=== PATIENT | male | born 1970 | race African-American/Black ===

== ENCOUNTER 2023-05-06 09:03 | Emergency (ER) | payer MEDICAID, OTHER ==
[~2023-05-06] VITALS: Ht 177.8 cm; Wt 102.3 kg
[2023-05-06 09:37] VITALS: BP 144/84; PULSE 85; RESP 18; TEMP 98.2; O2SAT 97
[2023-05-06] MEDS ORDERED: KETOROLAC TROMETH 60MG/2ML VIAL IM ONE (09:45)
[2023-05-06] MEDS ORDERED: methylPREDNISolone SOD SUCC 40 MG/ML VL IM ONE (09:45)
[2023-05-06] MEDS ORDERED: DexAMETHasone SOD PHOS 10MG/1ML VIAL INJ IM ONE (10:00)
[2023-05-06] MEDS ORDERED: AZIT500T66 PO ×2 (10:18)
[2023-05-06] MEDS ORDERED: BENZ200C64 PO ×2 (10:18)
[2023-05-06] MEDS ORDERED: INDO50CA82 PO (10:24)
[2023-05-06] MEDS ORDERED: COLC1CAP PO (10:24)
== END 2023-05-06 10:30 | disposition home or self-care (01) ==
LOC: ER 09:03
DX: M10.9 Gout, unspecified (principal)
CPT/HCPCS: 96372; 99284; J1100; J1885

== ENCOUNTER 2023-07-21 15:28 | Emergency (ER) | payer MEDICAID ==
[~2023-07-21] VITALS: Ht 177.8 cm; Wt 100.0 kg
[~2023-07-21 15:28] MED LIST: COLC1CAP PO; INDO50CA82 PO
[2023-07-21 16:25] LABS: Urine Bacteria FEW /hpf (None Seen); Urine Blood Negative /uL (Negative); Urine Clarity Clear (Clear); Urine Color Colorless (Yellow); Urine Protein, UAD Negative (Negative); Urine Specific Gravity 1.014 (1.001-1.035); Urine Urobilinogen Normal (Negative); Urine WBC <1 /hpf (0 - 3); Urine pH 5.5 (5.0-8.0)
[2023-07-21] MEDS ORDERED: IBUPROFEN 800 MG TAB PO ONE (17:00)
[2023-07-21 17:08] VITALS: BP 137/90; PULSE 78; RESP 18; TEMP 97.7; O2SAT 97
[2023-07-21] MEDS ORDERED: IBUP-1455 PO (17:54)
== END 2023-07-21 18:07 | disposition home or self-care (01) ==
LOC: ER 15:28
DX: R10.9 Unspecified abdominal pain (principal)
CPT/HCPCS: 74176; 81001

== ENCOUNTER 2023-10-21 17:53 | Emergency (ER) | payer MEDICAID ==
[~2023-10-21] VITALS: Ht 177.8 cm; Wt 107.2 kg
[~2023-10-21 17:53] MED LIST changes: +IBUP-1455 PO
[2023-10-21 18:54] VITALS: BP 126/81; PULSE 93; RESP 16; TEMP 97.8; O2SAT 96
[2023-10-21] MEDS ORDERED: DexAMETHasone SOD PHOS 10MG/1ML VIAL INJ IM ONE (19:15)
[2023-10-21] MEDS ORDERED: HYDROcodone-ACET 5/325MG TAB PO ONE (19:15)
[2023-10-21] MEDS ORDERED: KETOROLAC TROMETH 60MG/2ML VIAL IM ONE (19:15)
[2023-10-21] MEDS ORDERED: HYDR-4902 PO (19:35)
[2023-10-21] MEDS ORDERED: INDO50CA82 PO (19:35)
== END 2023-10-21 19:55 | disposition home or self-care (01) ==
LOC: ER 17:53
DX: M10.9 Gout, unspecified (principal); E11.9 Type 2 diabetes mellitus without complications; Z76.0 Encounter for issue of repeat prescription; Z79.1 Long term (current) use of non-steroidal anti-inflammatories (NSAID); Z79.899 Other long term (current) drug therapy
CPT/HCPCS: 96372; 99284; J1100; J1885

== ENCOUNTER 2025-01-07 19:43 | Emergency (ER) | payer SELFPAY ==
[~2025-01-07] VITALS: Ht 177.8 cm; Wt 99.3 kg
[~2025-01-07 19:43] MED LIST changes: +HYDR-4902 PO
[2025-01-07 20:00] VITALS: BP 118/73; PULSE 83; RESP 12; TEMP 99.3; O2SAT 97
--- NOTE | 2025-01-07 22:19 | DVH ---
CLINICAL INDICATION: pain and swelling TECHNIQUE: XY R ANKLE 3 VIEW Comparison: None FINDINGS/IMPRESSION: : Cortical irregularity of the distal fibula suggests nondisplaced fracture. No other fractures are identified. The ankle mortise is preserved. Moderate bi malleolar soft tissue swelling. Soft tissues are otherwise unremarkable.
--- NOTE | 2025-01-07 22:48 | ED.PDOC ---
Back pain HPI HPI Comments PATIENT C/O RIGHT ANKLE SWELLING AND PAIN SINCE WEDNESDAY. PATIENT STATES IT FEELS LIKE A GOUT FLARE UP, RAN OUT OF INDOMETHACIN Chief Complaint: Lower Extremity Time Seen by MD: 19:50 Primary Care Provider: EDWIN Reviewed Notes: Nurses Notes, Medications, Allergies Allergies: Coded Allergies: NO KNOWN ALLERGIES (Unverified , 05/06/23) Home Meds Active Scripts Indomethacin (Indomethacin) 50 Mg Cap, 1 CAP PO TID PRN for 10 Days, #30 CAP Prov:MURRAY,MARI SORTER OPERATOR 01/07/25 Indomethacin (Indomethacin) 50 Mg Cap, 1 CAP PO Q6HPRN PRN, #12 CAP 1 Refill as neeed for gout pain Prov:MATTHIAS GELLER Q CENTRAL OFFICE INSTALLER 10/21/23 Hydrocodone-Acetaminophen (Hydrocodone Bitartrate/AC 5-325 mg) 1 Tab Tab, 1 TAB PO Q6HPRN PRN, #10 TAB as needed for severe pain Prov:MATTHIAS GELLER Q CENTRAL OFFICE INSTALLER 10/21/23 Ibuprofen Micronized (Ibuprofen) 800 Mg Tab, 800 MG PO Q8HP PRN, #30 TAB Prov:TI FRANZ PAC 07/21/23 Colchicine (Colchicine) 0.6 Mg Cap, 0.6 MG PO BID, #30 CAP Prov:YVETTE HOLDEN 05/06/23 Indomethacin (Indomethacin) 50 Mg Cap, 1 CAP PO TID, #30 CAP Prov:YVETTE HOLDEN 05/06/23 Information Source: Patient Mode of Arrival: Ambulatory Past Medical History PAST MEDICAL HISTORY: DM, Gout Surgical History: Denies all surgeries Family History Family History: Reviewed,noncontributory to illness Social History Smoker: Non-Smoker Alcohol: Denies ETOH Use Drugs: Denies Drug Use Lives In: Home Constitutional: denies: chills, diaphoresis, fatigue, fever, malaise, sweats, weakness, others EENTM: denies: blurred vision, double vision, ear bleeding, ear discharge, ear drainage, ear pain, ear ringing, eye pain, eye redness, hearing loss, mouth pain, mouth swelling, nasal discharge, nose bleeding, nose congestion, nose pain, photophobia, tearing, throat pain, throat swelling, voice changes, others Respiratory: denies: cough, hemoptysis, orthopnea, SOB at rest, shortness of breath, SOB with excertion, stridor, wheezing, others Cardiovascular: denies: chest pain, dizzy spells, diaphoresis, Dyspnea on exertion, edema, irregular heart beat, left arm pain, lightheadedness, palpitations, PND, syncope, others Gastrointestinal: denies: abdomen distended, abdominal pain, blood streaked bowels, constipated, diarrhea, dysphagia, difficulty swallowing, hematemesis, melena, nausea, poor appetite, poor fluid intake, rectal bleeding, rectal pain, vomiting, others Genitourinary: denies: burning, dysuria, flank pain, frequency, hematuria, incontinence, penile discharge, penile sore, pain, testicle pain, testicle swelling, urgency, others Neurological: denies: dizziness, fainting, headache, left sided numbness, left sided weakness, numbness, paresthesia, pre-existing deficit, right sided numbness, right sided weakness, seizure, speech problems, tingling, tremors, weakness, others Musculoskeletal: reports: others (RIGHT ANKLE PAIN AND SWELLING); denies: back pain, gout, joint pain, joint swelling, muscle pain, muscle stiffness, neck pain Integumetry: denies: bruises, change in color, change in hair/nails, dryness, laceration, lesions, lumps, rash, wounds, others Allergic/Immunocompromised: denies: Difficulty Healing, Frequent Infections, Hives, Itching, others Hematologic/Lymphatic: denies: anemia, blood clots, easy bleeding, easy bruising, swollen glands, others Endocrine: denies: excessive hunger, excessive sweating, excessive thirst, excessive urination, flushing, intolerance to cold, intolerance to heat, unexplained weight gain, unexplained weight loss, others Psychiatric: denies: anxiety, bipolar disorder, depression, hopeless, panic disorder, schizophrenia, sleepless, suicidal, others Physical Exam General Appearance: No Apparent Distress, Normal HEENT: Pharynx Normal Neck: Full Range of Motion, Non-Tender Respiratory: Lungs Clear, No Respiratory Distress, Normal Breath Sounds Cardiovascular: No Murmur, Normal Peripheral Pulses, Regular Rate/Rhythm Breast Exam: Deferred Gastrointestinal: Non Tender, Soft Genitalia: Deferred Pelvic: Deferred Rectal: Deferred Extremities: Normal capillary refill, Normal inspection, Normal range of motion, Non-tender, No pedal edema Musculoskeletal : Location: Right (MODERATE ANKLE EDEMA STRENGTH SENSORY MOTION INTACT NO NOTED CREPITUS OR BONY PROMINENCE POSITIVE PEDAL PULSE) Apperance: Normal Neurologic: Alert, train gate attendant II-XII nml as Tested, No Motor Deficits, Normal Affect, Normal Mood, No Sensory Deficits Cerebellar Function: Normal Reflexes: Normal Skin: Dry, Normal Color, Warm Lymphatic: No Adenopathy Was a procedure done? Was a procedure done?: No Back Pain Differential Dx Differential Diagnosis: Fracture, Musculoskeletal Pain X-Ray, Labs, Meds, VS Vital Signs Date Time Temp Pulse Resp B/P (MAP) Pulse Ox O2 Delivery O2 Flow Rate FiO2 01/07/25 20:00 99.3 83 12 118/73 (88) 97 99.3 01/07/25 20:00 Room Air 01/07/25 20:00 99.3 83 12 118/73 (88) 97 99.3 Current Medications Medications (Trade) Dose Ordered Sig/Matt Route Start Time Stop Time Status Last Admin Ibuprofen (Motrin Tablet) 600 mg ONCE ONCE PO 01/07/25 23:00 01/07/25 23:01 DC 01/07/25 23:08 X-Ray, Labs, Meds, VS Comment RIGHT ANKLE X-RAY SHOWS NONDISPLACED DISTAL FIBULA FRACTURE. DISLOCATIONS OR OSSEOUS LESIONS. PATIENT GIVEN IBUPROFEN, REFUSED NORCO STATES HE WAS DRIVING HE NOTES IMPROVEMENT IN PAIN AND FUNCTION REQUESTING DISCHARGE AT THIS TIME. STIRRUP POSTERIOR SPLINT PLACED CRUTCHES PROVIDED PATIENT TOLERATED WELL POSITIVE CSM BEFORE AND AFTER. SCRIPT INDOMETHACIN ADVISED TO TAKE MEDICATION PRESCRIBED SIDE EFFECTS DISCUSSED. ADVISED TO FOLLOW UP WITH HIS PCP IN 2 DAYS FOR CONTINUED MANAGEMENT OF HIS GOUT AND RE-EVALUATION OF HIS ANKLE CONSIDER ORTHO REFERRAL SYMPTOMS PERSIST. ADVISED ON RICE. ADVISED ON ER RETURN PRECAUTIONS PATIENT INDICATED UNDERSTANDING AGREES WITH DISCHARGE PLAN OF CARE. Time of 1ST Reevaluation: 23:38 Reevaluation 1ST: Improved Patient Education/Counseling: Diagnosis, Treatment, Prognosis, Need For Follow Up Family Education/Counseling: No Family Present Departure 1 Departure Time of Disposition: 23:06 Impression: Primary Impression: Fracture of distal fibula Qualified Codes: S82.831A - Other fracture of upper and lower end of right fibula, initial encounter for closed fracture Additional Impression: Gout flare Qualified Codes: M10.9 - Gout, unspecified Disposition: HOME / SELF CARE / HOMELESS Condition: Stable e-Prescriptions Indomethacin (Indomethacin) 50 Mg Cap 1 CAP PO TID PRN for 10 Days, #30 CAP Prov: MARI GAO 01/07/25 Discharged With: Self Critical Care Note Critical Care Time?: No Stability Stability form required: MARI Odonnell Jan 07, 2025 22:48
[2025-01-07] MEDS ORDERED: INDO50CA82 PO (23:07)
[2025-01-07] MEDS: HYDROcodone-ACET 5/325MG TAB PO ONE (23:07)
[2025-01-07] MEDS: IBUPROFEN 600 MG TAB PO ONE (23:08)
[2025-01-07] MEDS: DexAMETHasone SOD PHOS 10MG/1ML VIAL INJ IM ONE (23:57)
== END 2025-01-08 00:03 | disposition home or self-care (01) ==
LOC: ER 19:43
DX: S82.831A Other fracture of upper and lower end of right fibula, initial encounter for closed fracture (principal); E11.9 Type 2 diabetes mellitus without complications; M10.9 Gout, unspecified; Z79.899 Other long term (current) drug therapy; X58.XXXA Exposure to other specified factors, initial encounter; Y93.89 Activity, other specified; Y92.89 Other specified places as the place of occurrence of the external cause; Y99.8 Other external cause status
CPT/HCPCS: 29515; 73610; 96372; 99283; J1100

== ENCOUNTER 2025-01-15 13:32 | Inpatient (IN) | payer MEDICAID, SELFPAY ==
[~2025-01-15] VITALS: Ht 177.8 cm; Wt 104.6 kg
[2025-01-15] MEDS: ACETAMINOPHEN 325 MG TAB PO ONE (13:56)
--- NOTE | 2025-01-15 14:27 | ED.PDOC ---
History of Present Illness HPI Comments 54-year-old male presents with a chief complaint of generalized weakness and chills since yesterday. Patient also reports headache and decreased urine output. Patient is currently febrile at 100.6F Chief Complaint: General Weakness Time Seen by MD: 14:05 Primary Care Provider: CHERELLE Eugene Notes: Medications, Allergies Allergies: Coded Allergies: NO KNOWN ALLERGIES (Unverified , 05/06/23) Home Meds Active Scripts Indomethacin (Indomethacin) 50 Mg Cap, 1 CAP PO TID PRN for 10 Days, #30 CAP Prov:MARI GAO RESEARCH PROFESSIONAL 01/07/25 Indomethacin (Indomethacin) 50 Mg Cap, 1 CAP PO Q6HPRN PRN, #12 CAP 1 Refill as neeed for gout pain Prov:MATTHIAS GELLER Q COTTON INSPECTOR 10/21/23 Hydrocodone-Acetaminophen (Hydrocodone Bitartrate/AC 5-325 mg) 1 Tab Tab, 1 TAB PO Q6HPRN PRN, #10 TAB as needed for severe pain Prov:MATTHIAS GELLER Q COTTON INSPECTOR 10/21/23 Ibuprofen Micronized (Ibuprofen) 800 Mg Tab, 800 MG PO Q8HP PRN, #30 TAB Prov:TI FRANZ PAC 07/21/23 Colchicine (Colchicine) 0.6 Mg Cap, 0.6 MG PO BID, #30 CAP Prov:YVETTE HOLDEN 05/06/23 Indomethacin (Indomethacin) 50 Mg Cap, 1 CAP PO TID, #30 CAP Prov:YVETTE HOLDEN 05/06/23 Information Source: Patient Mode of Arrival: Ambulatory Severity: Moderate Timing: Days Duration: Since onset Prehospital treatment: None Past Medical History PAST MEDICAL HISTORY: Gout Surgical History: Denies all surgeries Family History Family History: Reviewed,noncontributory to illness Social History Smoker: Non-Smoker Alcohol: Denies ETOH Use Drugs: Denies Drug Use Lives In: Home Constitutional: reports: chills, fever, weakness; denies: diaphoresis, fatigue, malaise, sweats, others EENTM: denies: blurred vision, double vision, ear bleeding, ear discharge, ear drainage, ear pain, ear ringing, eye pain, eye redness, hearing loss, mouth pain, mouth swelling, nasal discharge, nose bleeding, nose congestion, nose pain, photophobia, tearing, throat pain, throat swelling, voice changes, others Respiratory: denies: cough, hemoptysis, orthopnea, SOB at rest, shortness of breath, SOB with excertion, stridor, wheezing, others Cardiovascular: denies: chest pain, dizzy spells, diaphoresis, Dyspnea on exertion, edema, irregular heart beat, left arm pain, lightheadedness, palpitations, PND, syncope, others Gastrointestinal: denies: abdomen distended, abdominal pain, blood streaked bowels, constipated, diarrhea, dysphagia, difficulty swallowing, hematemesis, melena, nausea, poor appetite, poor fluid intake, rectal bleeding, rectal pain, vomiting, others Genitourinary: denies: burning, dysuria, flank pain, frequency, hematuria, incontinence, penile discharge, penile sore, pain, testicle pain, testicle swelling, urgency, others Neurological: denies: dizziness, fainting, headache, left sided numbness, left sided weakness, numbness, paresthesia, pre-existing deficit, right sided numbness, right sided weakness, seizure, speech problems, tingling, tremors, weakness, others Musculoskeletal: denies: back pain, gout, joint pain, joint swelling, muscle pain, muscle stiffness, neck pain, others Integumetry: denies: bruises, change in color, change in hair/nails, dryness, laceration, lesions, lumps, rash, wounds, others Allergic/Immunocompromised: denies: Difficulty Healing, Frequent Infections, Hives, Itching, others Hematologic/Lymphatic: denies: anemia, blood clots, easy bleeding, easy bruising, swollen glands, others Endocrine: denies: excessive hunger, excessive sweating, excessive thirst, excessive urination, flushing, intolerance to cold, intolerance to heat, unexplained weight gain, unexplained weight loss, others Psychiatric: denies: anxiety, bipolar disorder, depression, hopeless, panic disorder, schizophrenia, sleepless, suicidal, others All Other Systems: Reviewed and Negative Physical Exam General Appearance: No Apparent Distress, Normal HEENT: Normal ENT Inspection, Pharynx Normal, TMs Normal Neck: Full Range of Motion, Non-Tender, Normal, Normal Inspection Respiratory: Chest Non-Tender, Lungs Clear, No Accessory Muscle Use, No Respiratory Distress, Normal Breath Sounds Cardiovascular: No Edema, No JVD, No Murmur, No Gallop, Normal Peripheral Pulses, Regular Rate/Rhythm Breast Exam: Deferred Gastrointestinal: No Organomegaly, Non Tender, No Pulsatile Mass, Normal Bowel Sounds, Soft Genitalia: Deferred Pelvic: Deferred Rectal: Deferred Extremities: No calf tenderness, Normal capillary refill, Normal inspection, Normal range of motion, Non-tender, No pedal edema Musculoskeletal : Apperance: Normal Neurologic: Alert, supervisor real estate office II-XII nml as Tested, No Motor Deficits, Normal Affect, Normal Mood, No Sensory Deficits Cerebellar Function: Normal Reflexes: Normal Skin: Dry, Normal Color, Warm Lymphatic: No Adenopathy Was a procedure done? Was a procedure done?: No Differential Dx Considerations may include: sepsis from cystitis, prostatitis, colitis, pneumonia. viral infection X-Ray, Labs, Meds, VS Vital Signs Date Time Temp Pulse Resp B/P (MAP) Pulse Ox O2 Delivery O2 Flow Rate FiO2 01/15/25 13:56 100.6 01/15/25 13:51 107 01/15/25 13:45 100.6 108 20 132/84 (100) 97 100.6 Lab Test 01/15/25 14:38 01/15/25 14:00 Range/Units White Blood Count 17.4 H 4.4-10.8 10^3/uL Red Blood Count 4.23 L 4.5-5.90 10^6/uL Hemoglobin 12.9 L 13.5-17.5 g/dL Hematocrit 38.4 L 41.0-53.0 % Mean Corpuscular Volume 90.7 80.0-100.0 fL Mean Corpuscular Hemoglobin 30.5 28.0-32.0 pg Mean Corpuscular Hemoglobin Concent 33.6 32.0-36.0 g/dL Red Cell Distribution Width 14.7 H 11.8-14.3 % Platelet Count 312 140-450 10^3/uL Mean Platelet Volume 7.4 6.9-10.8 fL Neutrophils (%) (Auto) 87.3 H 37.0-80.0 % Lymphocytes (%) (Auto) 5.3 L 10.0-50.0 % Monocytes (%) (Auto) 7.1 0.0-12.0 % Eosinophils (%) (Auto) 0.3 0.0-7.0 % Basophils (%) (Auto) 0.0 0.0-2.0 % Neutrophils # (Auto) 15.2 H 1.6-8.6 10 ^3/uL Lymphocytes # (Auto) 0.9 0.4-5.4 10 ^3/uL Monocytes # (Auto) 1.2 0-1.3 10 ^3/uL Eosinophils # (Auto) 0.1 0-0.8 10 ^3/uL Basophils # (Auto) 0 0-0.2 10 ^3/uL Nucleated Red Blood Cells 0.1 % Sodium Level 137 136-145 mmol/L Potassium Level 3.4 L 3.5-5.1 mmol/L Chloride Level 100 98-107 mmol/L Carbon Dioxide Level 28 20-31 mmol/L Anion Gap 9 5-15 Blood Urea Nitrogen 11 9-23 mg/dL Creatinine 1.51 H 0.700-1.30 mg/dL Glomerular Filtration Rate Calc 54 >90 mL/min BUN/Creatinine Ratio 7.3 L 10.0-20.0 Serum Glucose 108 H 74-106 mg/dL Lactic Acid Level 2.7 *H 0.4-2.0 mmol/L Calcium Level 9.6 8.7-10.4 mg/dL Urine Color Pending Urine Clarity Pending Urine pH Pending Urine Specific [place] Pending Urine Protein Pending Urine Ketones Pending Urine Blood Pending Urine Nitrite Pending Urine Bilirubin Pending Urine Urobilinogen Pending Urine Leukocyte Esterase Pending Urine RBC Pending Urine Microscopic WBC Pending Urine Squamous Epithelial Cells Pending Urine Bacteria Pending Urine Glucose Pending Current Medications Medications (Trade) Dose Ordered Sig/Matt Route Start Time Stop Time Status Last Admin Acetaminophen (Tylenol Tablet) 650 mg ONCE ONCE PO 01/15/25 14:00 01/15/25 14:09 DC 01/15/25 13:56 Time of 1ST Reevaluation: 14:35 Reevaluation 1ST: Unchanged Patient Education/Counseling: Diagnosis, Treatment, Prognosis, Need For Follow Up Family Education/Counseling: No Family Present Sepsis Sepsis Reasesment Focused Exam Sepsis focused exam: focus exam completed (pt is alert, oriented, cap refill< 2 secs, not hypotensive), time: (1516) Departure 1 Departure Time of Disposition: 15:17 Impression: Primary Impression: Sepsis Qualified Codes: A41.9 - Sepsis, unspecified organism Additional Impressions: Prostatitis Qualified Codes: N41.0 - Acute prostatitis Renal insufficiency Disposition: ADMITTED INPATIENT Admit to: Tele Condition: Serious Discharged With: Self Critical Care Note Critical Care Time?: Yes (55 min-critical care time only) Critical care comment: Due to concerns for patients condition deteriorating, the care required my highest level of attention and readiness to intervene. I assessed the patient, reviewed the medical records, ordered the appropriate tests and treatments, then reassessed for results and responsiveness. I communicated with medical personnel and consultants and formulated a plan of care. Total critical care time excludes any procedures Stability Stability form required: No Heart Score Heart Score: Heart Score Response (Comments) Value History N/A 0 EKG N/A 0 Age N/A 0 Risk Factors N/A 0 Troponin N/A 0 Total 0 I personally scribed for JONAH CADET MD ([email or web address]) on 01/15/25 at 14:27. Electronically submitted by Rashad Potts ([email or web address]). JONAH CADET MD Jan 15, 2025 14:27
--- NOTE | 2025-01-15 14:41 | DVH ---
EXAM: XY CHEST PORTABLE Indication: fever Technique: Single frontal view of the chest was obtained Comparison: None FINDINGS: Lines and Tubes: None Lungs: No focal consolidation. Pleura: No effusion. No pneumothorax. Cardiomediastinal contours: Unremarkable Bones: No acute osseous abnormality. IMPRESSION: No acute cardiopulmonary disease.
--- NOTE | 2025-01-15 14:47 | DVH ---
EXAM: CT CT AB PEL WO CON-NO ORAL OR IV INDICATION: back pain, fever, dysuria TECHNIQUE: Volumetric multidetector CT images of the abdomen and pelvis were obtained without contras t. All CT scans at this facility use dose modulation, iterative reconstruction, and/or weight based d osing when appropriate to reduce radiation dose to as low as reasonably achievable. COMPARISON: CT CT AB PEL WO CON-NO ORAL OR IV on DOS: 07/21/23 FINDINGS: LOWER CHEST: Multiple small subpleural nodules located within left lung base with the largest measuri ng up to 4-5 mm. The cardiac size is normal without pericardial effusion. LIVER: Normal hepatic size without suspicious focal lesion. GALLBLADDER AND BILIARY TREE: No cholelithiasis. SPLEEN: Unremarkable. PANCREAS: Unremarkable. ADRENAL GLANDS: Unremarkable KIDNEYS: No hydronephrosis. No nephroureterolithiasis. BLADDER: Circumferential bladder wall thickening with surrounding inflammatory stranding REPRODUCTIVE ORGANS: [id number] prostatomegaly BOWEL/MESENTERY: Stomach is normal. No CT evidence of bowel obstruction. Normal appendix. ASCITES: Absent LYMPHADENOPATHY: No pathologically enlarged lymph nodes by CT size criteria VASCULATURE: No aneurysmal dilatation. ABDOMINAL WALL: Unremarkable. MUSCULOSKELETAL: No acute fracture or aggressive focal osseous lesion. Multifocal degenerative change of the visualized spine. Small suspected lipoma of the posterior subcutaneous fat of the lumbar spin e IMPRESSION: 1. Consideration for cystitis with [id number] prostatomegaly.
--- NOTE | 2025-01-15 14:49 | ECG ---
[facility] Test Date: 2025-01-15 Test Time: 13:51:37 Pat Name: MARCIAL DILL Department: ER Room: 0296 Gender: M Water Pumper: GP : [id number] Requested By: JONAH CADET Order Number: [id number] Reading MD: Alok Calvo Measurements Intervals [place] Rate: 107 P: 55 MI: 125 QRS: 68 QRSD: 82 T: -2 QT: 295 QTc: 394 Interpretive Statements Sinus tachycardia Borderline T abnormalities, inferior leads Electronically Signed On 01-17-2025 17:08:31 PDT by Alok Calvo Please click the below link to view image of tracing.
[2025-01-15 14:56] LABS: Basophils # (auto) 0 10 ^3/uL (0-0.2); Eosinophils # (auto) 0.1 10 ^3/uL (0-0.8); Eosinophils % (auto) 0.3 % (0.0-7.0); Hematocrit 38.4 % (41.0-53.0); Hemoglobin 12.9 g/dL (13.5-17.5); Lymphocytes # (auto) 0.9 10 ^3/uL (0.4-5.4); Lymphocytes % (auto) 5.3 % (10.0-50.0); Mean Corpuscular Hemoglobin 30.5 pg (28.0-32.0); Mean Corpuscular Hgb Conc. 33.6 g/dL (32.0-36.0); Mean Corpuscular Volume 90.7 fL (80.0-100.0); Monocytes # (auto) 1.2 10 ^3/uL (0-1.3); Monocytes % (auto) 7.1 % (0.0-12.0); Neutrophils # (auto) 15.2 10 ^3/uL (1.6-8.6); Neutrophils % (auto) 87.3 % (37.0-80.0); Nucleated Red Blood Cells % 0.1 %; Platelet Count (auto) 312 10^3/uL (140-450); Red Blood Cells 4.23 10^6/uL (4.5-5.90); Red Cell Distribution Width 14.7 % (11.8-14.3); White Blood Cell 17.4 10^3/uL (4.4-10.8)
[2025-01-15 15:04] LABS: Chloride 100 mmol/L (98-107); Sodium 137 mmol/L (136-145)
[2025-01-15 15:05] LABS: Anion Gap 9 (5-15); Calcium 9.6 mg/dL (8.7-10.4); Carbon Dioxide 28 mmol/L (20-31)
[2025-01-15 15:08] LABS: Potassium 3.4 mmol/L (3.5-5.1)
[2025-01-15 15:10] LABS: BUN/Creatinine Ratio 7.3 (10.0-20.0); Blood Urea Nitrogen 11 mg/dL (9-23)
[2025-01-15 15:13] LABS: Glucose 108 mg/dL (74-106)
[2025-01-15 15:14] LABS: Lactic Acid w/Reflex 2.7 mmol/L (0.4-2.0)
[2025-01-15 15:36] LABS: Urine Bacteria FEW /hpf (None Seen); Urine Blood 2+ /uL (Negative); Urine Clarity Turbid (Clear); Urine Color Light-Yellow (Yellow); Urine Mucus FEW (None Seen); Urine Protein, UAD TRACE (Negative); Urine Specific Gravity 1.014 (1.001-1.035); Urine Squamous Epithelial Cell FEW /hpf (<5); Urine Urobilinogen 3 mg/dL (Negative); Urine WBC 143 /HPF (0-3)
[2025-01-15] MEDS: LACTATED RINGER'S 2,100 ML IV ONE (16:06)
[2025-01-15] MEDS: PIPERACILLIN-TAZOB 3.375GM 100 ML IV SCH (16:07)
--- NOTE | 2025-01-15 16:41 | DVHHP2 ---
Admitting Diagnosis: Generalized weakness History of Present Illness 54-year-old male presents with a chief complaint of generalized weakness and chills since yesterday. Patient also reports headache and decreased urine output. Patient is currently febrile at 100.6F PAST MEDICAL HISTORY: Gout Surgical History: Denies all surgeries Family History Family History: Reviewed,noncontributory to illness Social History Smoker: Non-Smoker Alcohol: Denies ETOH Use Drugs: Denies Drug Use Lives In: Home Allergies: Coded Allergies: NO KNOWN ALLERGIES (Unverified , 05/06/23) Home Meds Active Scripts Indomethacin (Indomethacin) 50 Mg Cap, 1 CAP PO TID PRN for 10 Days, #30 CAP Prov:MURRAY,MARI WORLD GEOGRAPHY TEACHER 01/07/25 Indomethacin (Indomethacin) 50 Mg Cap, 1 CAP PO Q6HPRN PRN, #12 CAP 1 Refill as neeed for gout pain Prov:MATTHIAS GELLER Q DIRECTOR GOVERNMENT 10/21/23 Hydrocodone-Acetaminophen (Hydrocodone Bitartrate/AC 5-325 mg) 1 Tab Tab, 1 TAB PO Q6HPRN PRN, #10 TAB as needed for severe pain Prov:JUAN CARLOS GELLERA Q DIRECTOR GOVERNMENT 10/21/23 Ibuprofen Micronized (Ibuprofen) 800 Mg Tab, 800 MG PO Q8HP PRN, #30 TAB Prov:TI FRANZ PAC 07/21/23 Colchicine (Colchicine) 0.6 Mg Cap, 0.6 MG PO BID, #30 CAP Prov:YVETTE HOLDEN 05/06/23 Indomethacin (Indomethacin) 50 Mg Cap, 1 CAP PO TID, #30 CAP Prov:YVETTE HOLDEN 05/06/23 Current Medications Current Medications Medications (Trade) Dose Ordered Sig/Matt Route PRN Reason Start Time Stop Time Status Last Admin Piperacillin Sod/ Tazobactam Sod 100 ml @ 33.3 mls/hr Q6HR IV 01/15/25 18:00 01/15/25 15:27 DC Piperacillin Sod/ Tazobactam Sod 100 ml @ 33.3 mls/hr Q8HR IV 01/15/25 22:00 01/15/25 16:07 Vital Signs Vital Signs Date Time Temp Pulse Resp B/P (MAP) Pulse Ox O2 Delivery O2 Flow Rate FiO2 01/15/25 14:56 100.3 01/15/25 13:51 107 01/15/25 13:45 20 132/84 (100) 97 Physical Exam 58 years old male, well nourished well developed. No Apparent distress HEENT-atraumatic, normocephalic Heart-regular rate and rhythm Lungs clear to auscultate bilaterally Abdomen soft nontender nondistended Musculoskeletal-no edema or cyanosis. Negative CVA tenderness Neuro-AO x3, no focal deficit Results Labs Test 01/15/25 14:38 01/15/25 14:00 Range/Units White Blood Count 17.4 H 4.4-10.8 10^3/uL Red Blood Count 4.23 L 4.5-5.90 10^6/uL Hemoglobin 12.9 L 13.5-17.5 g/dL Hematocrit 38.4 L 41.0-53.0 % Mean Corpuscular Volume 90.7 80.0-100.0 fL Mean Corpuscular Hemoglobin 30.5 28.0-32.0 pg Mean Corpuscular Hemoglobin Concent 33.6 32.0-36.0 g/dL Red Cell Distribution Width 14.7 H 11.8-14.3 % Platelet Count 312 140-450 10^3/uL Mean Platelet Volume 7.4 6.9-10.8 fL Neutrophils (%) (Auto) 87.3 H 37.0-80.0 % Lymphocytes (%) (Auto) 5.3 L 10.0-50.0 % Monocytes (%) (Auto) 7.1 0.0-12.0 % Eosinophils (%) (Auto) 0.3 0.0-7.0 % Basophils (%) (Auto) 0.0 0.0-2.0 % Neutrophils # (Auto) 15.2 H 1.6-8.6 10 ^3/uL Lymphocytes # (Auto) 0.9 0.4-5.4 10 ^3/uL Monocytes # (Auto) 1.2 0-1.3 10 ^3/uL Eosinophils # (Auto) 0.1 0-0.8 10 ^3/uL Basophils # (Auto) 0 0-0.2 10 ^3/uL Nucleated Red Blood Cells 0.1 % Sodium Level 137 136-145 mmol/L Potassium Level 3.4 L 3.5-5.1 mmol/L Chloride Level 100 98-107 mmol/L Carbon Dioxide Level 28 20-31 mmol/L Anion Gap 9 5-15 Blood Urea Nitrogen 11 9-23 mg/dL Creatinine 1.51 H 0.700-1.30 mg/dL Glomerular Filtration Rate Calc 54 >90 mL/min BUN/Creatinine Ratio 7.3 L 10.0-20.0 Serum Glucose 108 H 74-106 mg/dL Lactic Acid Level 2.7 *H 0.4-2.0 mmol/L Calcium Level 9.6 8.7-10.4 mg/dL Urine Color Light-yellow Yellow Urine Clarity Turbid H Clear Urine pH 7.0 5.0-9.0 Urine Specific [place] 1.014 1.001-1.035 Urine Protein Trace H Negative Urine Ketones Negative Negative Urine Blood 2+ H Negative /uL Urine Nitrite Negative Negative Urine Bilirubin Negative Negative Urine Urobilinogen 3 H Negative mg/dL Urine Leukocyte Esterase 3+ Negative /uL Urine RBC 70 0 - 3 /hpf Urine Microscopic WBC 143 H 0-3 /HPF Urine Squamous Epithelial Cells Few <5 /hpf Urine Bacteria Few H None Seen /hpf Urine Mucus Few None Seen Urine Glucose Normal Normal mg/dL Primary Diagnosis Sepsis due to acute urinary tract infection Lactic acidosis BUTCH Plan Urinary analysis positive, elevated lactic acid Start ceftriaxone 1 g daily. Follow up with the urine culture and blood culture Trend lactic acid q.6 hours until normalize less than two IV fluids LR at 100 cc an hour Kidney ultrasound to assess for BUTCH Pain control Antiemetic Bowel regimen resume home meds Full code Renal diet Heparin for DVT prophylaxis Plan discussed with: Patient Problems List: (1) UTI (urinary tract infection) (2) Sepsis Status: Acute (3) Renal insufficiency Status: Acute Date of Service: Jan 15, 2025 Billing Provider: MAURICIO HUYNH MD Common Visit Codes: [id number] INP/OBS CARE (HIGH) MAURICIO HUYNH MD Jan 15, 2025 16:41
[2025-01-15] MEDS ORDERED: ONDANSETRON HCL 4 MG/2 ML VIAL IV PRN (16:45)
[2025-01-15] MEDS ORDERED: PIPERACILLIN-TAZOB 3.375GM 100 ML IV SCH (18:00)
--- NOTE | 2025-01-15 18:24 | DVH ---
INDICATION: sheryl TECHNIQUE: Multiple real-time sonographic images of the kidneys and bladder were obtained. COMPARISON: None FINDINGS: The right kidney measures 10.26 cm in length, which is normal in size. There is normal echo genicity of the right kidney. No hydronephrosis. 6 mm echogenic focus lower pole right kidney with no hydronephrosis most likely nonobstructing calculus The left kidney measures 9.48 cm in length, which is normal in size. There is normal echogenicity of the left kidney. No hydronephrosis. 10 mm echogenic focus midpole left kidney with no hydronephrosis No large intraluminal masses are seen in the bladder. Prior to voiding the bladder volume measures vo lume 149 mL cc. Bladder still appears distended after patient voided. IMPRESSION: 1. Normal sonographic appearance of the kidneys. No hydronephrosis. 2. Bilateral echogenic foci without hydronephrosis 3. 149 mL of the urine in the bladder prevoid no change postvoid..
[2025-01-15] MEDS: HYDROcodone-ACET 5/325MG TAB PO PRN (19:42)
[2025-01-15] MEDS: LACTATED RINGER'S 1,000 ML IV ONE (19:43)
[2025-01-15 21:36] VITALS: PULSE 90; RESP 16; O2SAT 96
[2025-01-15 21:59] VITALS: BP 108/62; PULSE 86; RESP 18; TEMP 99.9; O2SAT 95
[2025-01-15] MEDS: COLCHICINE 0.6 MG CAP PO SCH (22:00)
[2025-01-15] MEDS: SODIUM CHLOR 0.9% PF (SALINE LOCK) 10ML VIAL/SYR IV SCH (23:05)
[2025-01-15 23:40] VITALS: PULSE 82; RESP 18; O2SAT 98
[2025-01-16] VITALS (8 sets, daily range): BP systolic 108–140; BP diastolic 66–78; PULSE 57–84; RESP 18–20; TEMP 97.5–100.4; O2SAT 96–99
[2025-01-16] MEDS: ACETAMINOPHEN 325 MG TAB PO PRN (05:49)
[2025-01-16 08:02] LABS: Basophils # (auto) 0 10 ^3/uL (0-0.2); Basophils % (auto) 0.1 % (0.0-2.0); Eosinophils # (auto) 0.1 10 ^3/uL (0-0.8); Eosinophils % (auto) 1.3 % (0.0-7.0); Hematocrit 35.9 % (41.0-53.0); Hemoglobin 12.3 g/dL (13.5-17.5); Lymphocytes % (auto) 8.9 % (10.0-50.0); Mean Corpuscular Hgb Conc. 34.3 g/dL (32.0-36.0); Mean Corpuscular Volume 90.4 fL (80.0-100.0); Monocytes # (auto) 1.2 10 ^3/uL (0-1.3); Monocytes % (auto) 10.9 % (0.0-12.0); Neutrophils # (auto) 8.5 10 ^3/uL (1.6-8.6); Neutrophils % (auto) 78.8 % (37.0-80.0); Platelet Count (auto) 266 10^3/uL (140-450); Red Blood Cells 3.97 10^6/uL (4.5-5.90); Red Cell Distribution Width 14.5 % (11.8-14.3); White Blood Cell 10.8 10^3/uL (4.4-10.8)
[2025-01-16 08:33] LABS: Alanine Aminotransferase 25 U/L (7-40); Albumin 3.7 g/dL (3.2-4.8); Alkaline Phosphatase 85 U/L (46-116); Anion Gap 8 (5-15); Aspartate Aminotransferase 23 U/L (13-40); BUN/Creatinine Ratio 7.4 (10.0-20.0); Bilirubin, Total 0.9 mg/dL (0.2-1.0); Blood Urea Nitrogen 11 mg/dL (9-23); Calcium 9.4 mg/dL (8.7-10.4); Carbon Dioxide 26 mmol/L (20-31); Chloride 104 mmol/L (98-107); Potassium 3.8 mmol/L (3.5-5.1); Sodium 138 mmol/L (136-145); Total Protein 5.9 g/dL (5.7-8.2)
[2025-01-16 08:42] LABS: Glucose 107 mg/dL (74-106)
[2025-01-16] MEDS: DOCUSATE SOD 100 MG CAP PO PRN (10:49)
--- NOTE | 2025-01-16 13:15 | DVHPN2 ---
Reviewed: Care Plan, H&P, Labs, Medications, Previous Orders, Radiology Changes from previous H/P or p: No Changes Objective Vitals Vital Signs Date Time Temp Pulse Resp B/P (MAP) Pulse Ox O2 Delivery O2 Flow Rate FiO2 01/16/25 08:40 98.4 71 20 108/67 (81) 97 98.4 01/15/25 23:40 Room Air* 0 21 Intake/Output Intake and Output 01/16/25 07:00 Intake Total 0 ml Balance 0 ml Intake Oral 0 ml # Voids 9 Medications Current Medications Medications Dose Ordered Sig/Matt Route Start Time Stop Time Status Last Admin Dose Admin Piperacillin Sod/ Tazobactam Sod 100 ml @ 33.3 mls/hr Q8HR IV 01/15/25 22:00 01/16/25 05:34 33.3 MLS/HR Sodium Chloride 10 ml Q8HR IV 01/15/25 22:00 01/16/25 05:39 10 ML Docusate Sodium 100 mg BIDPRN PRN PO 01/15/25 16:45 01/16/25 10:49 100 MG Acetaminophen 650 mg Q6HP PRN PO 01/15/25 16:45 01/16/25 05:49 650 MG Acetaminophen/ Hydrocodone Bitart 1 tab Q4HP PRN PO 01/15/25 16:45 01/16/25 10:49 1 TAB Ondansetron HCl 4 mg Q4HP PRN IV 01/15/25 16:45 Colchicine 0.6 mg BID PO 01/15/25 22:00 01/16/25 10:36 0.6 MG Laboratory Results Laboratory Tests 01/16/25 07:31 Chemistry Test 01/15/25 14:38 01/16/25 07:31 Calcium Level 9.6 mg/dL (8.7-10.4) 9.4 mg/dL (8.7-10.4) Albumin 3.7 g/dL (3.2-4.8) Total Protein 5.9 g/dL (5.7-8.2) LFT Test 01/16/25 07:31 Alanine Aminotransferase (ALT) 25 U/L (7-40) Alkaline Phosphatase 85 U/L (46-116) Aspartate Amino Transferase (AST) 23 U/L (13-40) Total Bilirubin 0.9 mg/dL (0.2-1.0) Urinalysis Test 01/15/25 14:00 Urine Color Light-yellow (Yellow) Urine Clarity Turbid (Clear) H Urine pH 7.0 (5.0-9.0) Urine Specific [place] 1.014 (1.001-1.035) Urine Protein Trace (Negative) H Urine Ketones Negative (Negative) Urine Blood 2+ /uL (Negative) H Urine Nitrite Negative (Negative) Urine Bilirubin Negative (Negative) Urine Urobilinogen 3 mg/dL (Negative) H Urine Leukocyte Esterase 3+ /uL (Negative) Urine RBC 70 /hpf (0 - 3) Urine Microscopic WBC 143 /HPF (0-3) H Urine Squamous Epithelial Cells Few /hpf (<5) Urine Bacteria Few /hpf (None Seen) H Urine Mucus Few (None Seen) Urine Glucose Normal mg/dL (Normal) Microbiology Microbiology Date/Time Source Procedure Growth Status 01/15/25 14:38 Blood Blood Culture - Preliminary Resulted 01/15/25 14:00 Voided Urine Urine Culture - Preliminary Resulted Labs and/or images reviewed: Labs reviewed by me, Image(s) reviewed by me Assessment/Plan Assessment/Plan Sepsis Secondary to urinary tract infection with elevated white count 17 K: Blood cultures urine cultures, DC Zosyn start Rocephin Acute urinary tract infection Acute Lactic acidosis Acute dehydration IV fluids History of gout colchicine indomethacin Enlarged prostate: PSA urology consult for Plan discussed with: Patient Date of Service: Jan 16, 2025 Billing Provider: MARIZA CAAL MD Common Visit Codes: [id number] INP/OBS CARE(HIGH) MARIZA CAAL MD Jan 16, 2025 13:15
[2025-01-16] MEDS: cefTRIAXone 1GM/50ML D5W 50 ML IV ONE (13:59)
[2025-01-16] MEDS: INDOMETHACIN 25 MG CAP PO SCH (14:06)
--- NOTE | 2025-01-16 18:08 | DVHINCON2 ---
Date of service: Jan 16, 2025 Referring Physician Hospitalist Reason for Consultation BPH/UTI/bacteremia/prostatitis History of Present Illness 54-year-old male presents with a chief complaint of generalized weakness and chills since yesterday. Patient also reports headache and decreased urine ou tput. Patient is currently febrile at 100.6F. He has positive blood culture and urine culture growing Gram-negative rods. Past Medical History Gout Family History: FH: colon cancer Great Grandmother , Allergies: Coded Allergies: NO KNOWN ALLERGIES (Unverified , 05/06/23) Home Meds Active Scripts Indomethacin (Indomethacin) 50 Mg Cap, 1 CAP PO TID PRN for 10 Days, #30 CAP Prov:MARI GAO [employer] 01/07/25 Indomethacin (Indomethacin) 50 Mg Cap, 1 CAP PO Q6HPRN PRN, #12 CAP 1 Refill as neeed for gout pain Prov:MATTHIAS GELLER Q [employer] 10/21/23 Hydrocodone-Acetaminophen (Hydrocodone Bitartrate/AC 5-325 mg) 1 Tab Tab, 1 TAB PO Q6HPRN PRN, #10 TAB as needed for severe pain Prov:JUAN CARLOS GELLERA Q [employer]IC[employer]ENTICE 10/21/23 Ibuprofen Micronized (Ibuprofen) 800 Mg Tab, 800 MG PO Q8HP PRN, #30 TAB Prov:TI FRANZ PAC 07/21/23 Colchicine (Colchicine) 0.6 Mg Cap, 0.6 MG PO BID, #30 CAP Prov:YVETTE HOLDEN 05/06/23 Indomethacin (Indomethacin) 50 Mg Cap, 1 CAP PO TID, #30 CAP Prov:YVETTE HOLDEN 05/06/23 Current Medications Current Medications Medications (Trade) Dose Ordered Sig/Matt Route PRN Reason Start Time Stop Time Status Last Admin Piperacillin Sod/ Tazobactam Sod 100 ml @ 33.3 mls/hr Q8HR IV 01/15/25 22:00 01/16/25 13:04 DC 01/16/25 05:34 Sodium Chloride (Saline Lock Ns) 10 ml Q8HR IV 01/15/25 22:00 01/16/25 13:59 Colchicine (Colcrys) 0.6 mg BID PO 01/15/25 22:00 01/16/25 13:35 DC 01/16/25 10:36 Ceftriaxone Sodium 50 ml @ 100 mls/hr DAILY@09 IV 01/17/25 09:00 Colchicine (Colcrys) 0.6 mg Q12HR PO 01/16/25 22:00 Indomethacin (Indocin Capsule) 50 mg TID PO 01/16/25 14:00 01/16/25 14:06 Review of Systems As per HPI Vital Signs Vital Signs Date Time Temp Pulse Resp B/P (MAP) Pulse Ox O2 Delivery O2 Flow Rate FiO2 01/16/25 17:00 97.8 57 20 140/78 (98) 97 97.8 01/16/25 08:00 Room Air* 0 21 Physical Exam Vital Signs Date Time Temp Pulse Resp B/P (MAP) Pulse Ox O2 Delivery O2 Flow Rate FiO2 01/15/25 14:56 100.3 01/15/25 13:51 107 01/15/25 13:45 20 132/84 (100) 97 Physical Exam 58 years old male, well nourished well developed. No Apparent distress HEENT-atraumatic, normocephalic Heart-regular rate and rhythm Lungs clear to auscultate bilaterally Abdomen soft nontender nondistended Musculoskeletal-no edema or cyanosis. Negative CVA tenderness Neuro-AO x3, no focal deficit Labs/Diagnostic Data Labs Test 01/16/25 07:31 01/15/25 16:29 01/15/25 14:00 Range/Units White Blood Count 10.8 # 4.4-10.8 10^3/uL Red Blood Count 3.97 L 4.5-5.90 10^6/uL Hemoglobin 12.3 L 13.5-17.5 g/dL Hematocrit 35.9 L 41.0-53.0 % Mean Corpuscular Volume 90.4 80.0-100.0 fL Mean Corpuscular Hemoglobin 31.0 28.0-32.0 pg Mean Corpuscular Hemoglobin Concent 34.3 32.0-36.0 g/dL Red Cell Distribution Width 14.5 H 11.8-14.3 % Platelet Count 266 140-450 10^3/uL Mean Platelet Volume 7.6 6.9-10.8 fL Neutrophils (%) (Auto) 78.8 37.0-80.0 % Lymphocytes (%) (Auto) 8.9 L 10.0-50.0 % Monocytes (%) (Auto) 10.9 0.0-12.0 % Eosinophils (%) (Auto) 1.3 0.0-7.0 % Basophils (%) (Auto) 0.1 0.0-2.0 % Neutrophils # (Auto) 8.5 1.6-8.6 10 ^3/uL Lymphocytes # (Auto) 1.0 0.4-5.4 10 ^3/uL Monocytes # (Auto) 1.2 0-1.3 10 ^3/uL Eosinophils # (Auto) 0.1 0-0.8 10 ^3/uL Basophils # (Auto) 0 0-0.2 10 ^3/uL Nucleated Red Blood Cells 0.0 % Sodium Level 138 136-145 mmol/L Potassium Level 3.8 3.5-5.1 mmol/L Chloride Level 104 98-107 mmol/L Carbon Dioxide Level 26 20-31 mmol/L Anion Gap 8 5-15 Blood Urea Nitrogen 11 9-23 mg/dL Creatinine 1.48 H 0.700-1.30 mg/dL Glomerular Filtration Rate Calc 55 >90 mL/min BUN/Creatinine Ratio 7.4 L 10.0-20.0 Serum Glucose 107 H 74-106 mg/dL Calcium Level 9.4 8.7-10.4 mg/dL Total Bilirubin 0.9 0.2-1.0 mg/dL Aspartate Amino Transferase (AST) 23 13-40 U/L Alanine Aminotransferase (ALT) 25 7-40 U/L Alkaline Phosphatase 85 46-116 U/L Total Protein 5.9 5.7-8.2 g/dL Albumin 3.7 3.2-4.8 g/dL Lactic Acid Level 1.1 0.4-2.0 mmol/L Urine Color Light-yellow Yellow Urine Clarity Turbid H Clear Urine pH 7.0 5.0-9.0 Urine Specific [place] 1.014 1.001-1.035 Urine Protein Trace H Negative Urine Ketones Negative Negative Urine Blood 2+ H Negative /uL Urine Nitrite Negative Negative Urine Bilirubin Negative Negative Urine Urobilinogen 3 H Negative mg/dL Urine Leukocyte Esterase 3+ Negative /uL Urine RBC 70 0 - 3 /hpf Urine Microscopic WBC 143 H 0-3 /HPF Urine Squamous Epithelial Cells Few <5 /hpf Urine Bacteria Few H None Seen /hpf Urine Mucus Few None Seen Urine Glucose Normal Normal mg/dL Microbiology Date/Time Source Procedure Growth Status 01/15/25 22:34 Nose MRSA Screen - Final Complete 01/15/25 14:38 Blood Blood Culture - Preliminary Resulted 01/15/25 14:00 Voided Urine Urine Culture - Preliminary Resulted Assessment Prostatitis UTI BPH Nocturia Plan/Recommendation Fully treat bacteremia/UTI with appropriate antibiotics Outpatient evaluation with cystoscopy & urodynamics TBA Plan discussed with: Patient, Spouse LEEANN HUYNH MD Jan 16, 2025 18:08
[2025-01-16] MEDS: COLCHICINE 0.6 MG CAP PO SCH (21:23)
[2025-01-17] VITALS (7 sets, daily range): BP systolic 112–130; BP diastolic 61–78; PULSE 50–70; RESP 17–20; TEMP 97.4–98.4; O2SAT 96–100
[2025-01-17 07:07] LABS: PSA Free 11.5 ng/mL; Prostate Specific Antigen 48.7 ng/mL (0.0-4.0)
[2025-01-17 07:39] LABS: Basophils # (auto) 0 10 ^3/uL (0-0.2); Basophils % (auto) 0.1 % (0.0-2.0); Eosinophils # (auto) 0.1 10 ^3/uL (0-0.8); Eosinophils % (auto) 1.9 % (0.0-7.0); Hematocrit 35.5 % (41.0-53.0); Hemoglobin 12.1 g/dL (13.5-17.5); Lymphocytes # (auto) 1.1 10 ^3/uL (0.4-5.4); Mean Corpuscular Hemoglobin 30.9 pg (28.0-32.0); Mean Corpuscular Hgb Conc. 34.1 g/dL (32.0-36.0); Mean Corpuscular Volume 90.5 fL (80.0-100.0); Monocytes # (auto) 0.9 10 ^3/uL (0-1.3); Monocytes % (auto) 13.2 % (0.0-12.0); Neutrophils # (auto) 4.9 10 ^3/uL (1.6-8.6); Neutrophils % (auto) 69.8 % (37.0-80.0); Platelet Count (auto) 287 10^3/uL (140-450); Red Blood Cells 3.93 10^6/uL (4.5-5.90); Red Cell Distribution Width 14.6 % (11.8-14.3)
[2025-01-17 07:47] LABS: Alanine Aminotransferase 33 U/L (7-40); Alkaline Phosphatase 95 U/L (46-116); Anion Gap 6 (5-15); BUN/Creatinine Ratio 11.4 (10.0-20.0); Blood Urea Nitrogen 15 mg/dL (9-23); Calcium 9.2 mg/dL (8.7-10.4); Carbon Dioxide 26 mmol/L (20-31); Potassium 4.3 mmol/L (3.5-5.1); Sodium 139 mmol/L (136-145); Total Protein 6.1 g/dL (5.7-8.2)
[2025-01-17 07:48] LABS: Albumin 3.6 g/dL (3.2-4.8); Aspartate Aminotransferase 24 U/L (13-40); Bilirubin, Total 0.4 mg/dL (0.2-1.0)
[2025-01-17 07:55] LABS: Chloride 107 mmol/L (98-107); Glucose 142 mg/dL (74-106)
[2025-01-17] MEDS: cefTRIAXone 1GM/50ML D5W 50 ML IV SCH (08:59)
--- NOTE | 2025-01-17 11:44 | DVHPN2 ---
Reviewed: Care Plan, H&P, Labs, Medications, Previous Orders, Radiology Changes from previous H/P or p: No Changes Objective Vitals Vital Signs Date Time Temp Pulse Resp B/P (MAP) Pulse Ox O2 Delivery O2 Flow Rate FiO2 01/17/25 09:08 97.8 50 19 130/71 (90) 100 97.8 01/17/25 08:00 Room Air* 0 21 Intake/Output Intake and Output 01/17/25 07:00 Intake Total 1395 ml Output Total 2750 ml Balance -1355 ml Intake Oral 1345 ml IV Total 50 ml Output Urine Total 2750 ml # Voids 5 Medications Current Medications Medications Dose Ordered Sig/Matt Route Start Time Stop Time Status Last Admin Dose Admin Sodium Chloride 10 ml Q8HR IV 01/15/25 22:00 01/17/25 05:44 10 ML Docusate Sodium 100 mg BIDPRN PRN PO 01/15/25 16:45 01/16/25 10:49 100 MG Acetaminophen 650 mg Q6HP PRN PO 01/15/25 16:45 01/16/25 05:49 650 MG Acetaminophen/ Hydrocodone Bitart 1 tab Q4HP PRN PO 01/15/25 16:45 01/16/25 10:49 1 TAB Ondansetron HCl 4 mg Q4HP PRN IV 01/15/25 16:45 Ceftriaxone Sodium 50 ml @ 100 mls/hr DAILY@09 IV 01/17/25 09:00 01/17/25 08:59 100 MLS/HR Colchicine 0.6 mg Q12HR PO 01/16/25 22:00 01/17/25 09:57 0.6 MG Indomethacin 50 mg TID PO 01/16/25 14:00 01/17/25 05:43 50 MG Laboratory Results Laboratory Tests 01/17/25 06:39 Chemistry Test 01/17/25 06:39 Albumin 3.6 g/dL (3.2-4.8) Calcium Level 9.2 mg/dL (8.7-10.4) Total Protein 6.1 g/dL (5.7-8.2) LFT Test 01/17/25 06:39 Alanine Aminotransferase (ALT) 33 U/L (7-40) Alkaline Phosphatase 95 U/L (46-116) Aspartate Amino Transferase (AST) 24 U/L (13-40) Total Bilirubin 0.4 mg/dL (0.2-1.0) Urinalysis Test 01/15/25 14:00 Urine Color Light-yellow (Yellow) Urine Clarity Turbid (Clear) H Urine pH 7.0 (5.0-9.0) Urine Specific [place] 1.014 (1.001-1.035) Urine Protein Trace (Negative) H Urine Ketones Negative (Negative) Urine Blood 2+ /uL (Negative) H Urine Nitrite Negative (Negative) Urine Bilirubin Negative (Negative) Urine Urobilinogen 3 mg/dL (Negative) H Urine Leukocyte Esterase 3+ /uL (Negative) Urine RBC 70 /hpf (0 - 3) Urine Microscopic WBC 143 /HPF (0-3) H Urine Squamous Epithelial Cells Few /hpf (<5) Urine Bacteria Few /hpf (None Seen) H Urine Mucus Few (None Seen) Urine Glucose Normal mg/dL (Normal) Microbiology Microbiology Date/Time Source Procedure Growth Status 01/15/25 22:34 Nose MRSA Screen - Final Complete 01/15/25 14:38 Blood Blood Culture - Preliminary Resulted 01/15/25 14:00 Voided Urine Urine Culture - Preliminary Resulted Labs and/or images reviewed: Labs reviewed by me, Image(s) reviewed by me Assessment/Plan Assessment/Plan Sepsis Secondary to urinary tract infection with elevated white count 17 K: Blood cultures growing Gram-negative rods urine cultures, growing Gram-negative rods continue Rocephin Acute urinary tract infection Acute Lactic acidosis Acute dehydration IV fluids History of gout colchicine indomethacin Enlarged prostate: PSA 48.7 urology consult for appreciated, advised outpatient cystoscopy, patient might need prostate biopsy because of elevated PSA, patient was advised accordingly Plan discussed with: Patient My Orders Orders - MARIZA CAAL MD Procedure Category Date Status Time Ceftriaxone 1gm/50ml PHA 01/17/25 In Process D5w (Rocephin) 09:00 * Urology Consult CONS 01/16/25 Transmitted 13:10 Colchicine (Colcrys) PHA 01/16/25 In Process 22:00 Indomethacin Capsule PHA 01/16/25 In Process (Indocin Capsule) 14:00 Date of Service: Jan 17, 2025 Billing Provider: MARIZA CAAL MD Common Visit Codes: [id number] INP/OBS CARE(HIGH) MARIZA CAAL MD Jan 17, 2025 11:44
[2025-01-18 01:00] VITALS: BP 124/71; PULSE 52; RESP 19; TEMP 98.2; O2SAT 97
[2025-01-18 05:00] VITALS: BP 124/63; PULSE 54; RESP 17; TEMP 98.4; O2SAT 98
[2025-01-18 07:52] LABS: Basophils # (auto) 0 10 ^3/uL (0-0.2); Basophils % (auto) 0.2 % (0.0-2.0); Eosinophils # (auto) 0 10 ^3/uL (0-0.8); Eosinophils % (auto) 0.7 % (0.0-7.0); Hematocrit 35.5 % (41.0-53.0); Lymphocytes # (auto) 1.2 10 ^3/uL (0.4-5.4); Lymphocytes % (auto) 21.5 % (10.0-50.0); Mean Corpuscular Hemoglobin 30.6 pg (28.0-32.0); Mean Corpuscular Hgb Conc. 33.9 g/dL (32.0-36.0); Mean Corpuscular Volume 90.2 fL (80.0-100.0); Monocytes # (auto) 0.7 10 ^3/uL (0-1.3); Monocytes % (auto) 12.1 % (0.0-12.0); Neutrophils # (auto) 3.5 10 ^3/uL (1.6-8.6); Neutrophils % (auto) 65.5 % (37.0-80.0); Nucleated Red Blood Cells % 0.1 %; Platelet Count (auto) 336 10^3/uL (140-450); Red Blood Cells 3.94 10^6/uL (4.5-5.90); Red Cell Distribution Width 14.2 % (11.8-14.3); White Blood Cell 5.4 10^3/uL (4.4-10.8)
[2025-01-18 08:13] LABS: Alanine Aminotransferase 37 U/L (7-40); Alkaline Phosphatase 97 U/L (46-116); Anion Gap 8 (5-15); BUN/Creatinine Ratio 11.4 (10.0-20.0); Blood Urea Nitrogen 15 mg/dL (9-23); Calcium 9.4 mg/dL (8.7-10.4); Carbon Dioxide 23 mmol/L (20-31); Potassium 4.1 mmol/L (3.5-5.1); Sodium 138 mmol/L (136-145); Total Protein 6.2 g/dL (5.7-8.2)
[2025-01-18 08:14] LABS: Albumin 3.7 g/dL (3.2-4.8); Aspartate Aminotransferase 23 U/L (13-40); Bilirubin, Total 0.4 mg/dL (0.2-1.0)
[2025-01-18 08:17] LABS: Chloride 107 mmol/L (98-107); Glucose 106 mg/dL (74-106)
[2025-01-18 08:40] VITALS: BP 120/74; PULSE 50; RESP 18; TEMP 97.6; O2SAT 99
--- NOTE | 2025-01-18 11:24 | DVHPN2 ---
Reviewed: Care Plan, H&P, Labs, Medications, Previous Orders, Radiology Changes from previous H/P or p: No Changes Objective Vitals Vital Signs Date Time Temp Pulse Resp B/P (MAP) Pulse Ox O2 Delivery O2 Flow Rate FiO2 01/18/25 08:40 97.6 50 18 120/74 (89) 99 97.6 01/18/25 08:00 Room Air* 0 21 Intake/Output Intake and Output 01/18/25 07:00 Intake Total 1430 ml Balance 1430 ml Intake Oral 1380 ml IV Total 50 ml # Voids 6 # Bowel Movements 3 Medications Current Medications Medications Dose Ordered Sig/Matt Route Start Time Stop Time Status Last Admin Dose Admin Sodium Chloride 10 ml Q8HR IV 01/15/25 22:00 01/18/25 06:34 10 ML Docusate Sodium 100 mg BIDPRN PRN PO 01/15/25 16:45 01/16/25 10:49 100 MG Acetaminophen 650 mg Q6HP PRN PO 01/15/25 16:45 01/16/25 05:49 650 MG Acetaminophen/ Hydrocodone Bitart 1 tab Q4HP PRN PO 01/15/25 16:45 01/16/25 10:49 1 TAB Ondansetron HCl 4 mg Q4HP PRN IV 01/15/25 16:45 Ceftriaxone Sodium 50 ml @ 100 mls/hr DAILY@09 IV 01/17/25 09:00 01/18/25 09:20 100 MLS/HR Colchicine 0.6 mg Q12HR PO 01/16/25 22:00 01/18/25 09:21 0.6 MG Indomethacin 50 mg TID PO 01/16/25 14:00 01/18/25 06:34 50 MG Laboratory Results Laboratory Tests 01/18/25 06:59 Chemistry Test 01/18/25 06:59 Albumin 3.7 g/dL (3.2-4.8) Calcium Level 9.4 mg/dL (8.7-10.4) Total Protein 6.2 g/dL (5.7-8.2) LFT Test 01/18/25 06:59 Alanine Aminotransferase (ALT) 37 U/L (7-40) Alkaline Phosphatase 97 U/L (46-116) Aspartate Amino Transferase (AST) 23 U/L (13-40) Total Bilirubin 0.4 mg/dL (0.2-1.0) Urinalysis Test 01/15/25 14:00 Urine Color Light-yellow (Yellow) Urine Clarity Turbid (Clear) H Urine pH 7.0 (5.0-9.0) Urine Specific [place] 1.014 (1.001-1.035) Urine Protein Trace (Negative) H Urine Ketones Negative (Negative) Urine Blood 2+ /uL (Negative) H Urine Nitrite Negative (Negative) Urine Bilirubin Negative (Negative) Urine Urobilinogen 3 mg/dL (Negative) H Urine Leukocyte Esterase 3+ /uL (Negative) Urine RBC 70 /hpf (0 - 3) Urine Microscopic WBC 143 /HPF (0-3) H Urine Squamous Epithelial Cells Few /hpf (<5) Urine Bacteria Few /hpf (None Seen) H Urine Mucus Few (None Seen) Urine Glucose Normal mg/dL (Normal) Microbiology Microbiology Date/Time Source Procedure Growth Status 01/15/25 22:34 Nose MRSA Screen - Final Complete 01/15/25 14:38 Blood Blood Culture - Final Escherichia coli Complete 01/15/25 14:00 Voided Urine Urine Culture - Final Escherichia coli Complete Labs and/or images reviewed: Labs reviewed by me, Image(s) reviewed by me Assessment/Plan Assessment/Plan Sepsis Secondary to urinary tract infection with elevated white count 17 K: Blood cultures and urine cultures growing E coli: Continue Rocephin Acute urinary tract infection Acute Lactic acidosis Acute dehydration IV fluids History of gout colchicine indomethacin Enlarged prostate: PSA 48.7 urology consult for appreciated, advised outpatient cystoscopy, patient might need prostate biopsy because of elevated PSA, patient was advised accordingly Repeat blood cultures ordered today Plan discussed with: Patient Date of Service: January 18, 2025 Billing Provider: MARIZA CAAL MD Common Visit Codes: [id number] INP/OBS CARE(HIGH) MARIZA CAAL MD January 18, 2025 11:24
[2025-01-18 13:00] VITALS: BP 132/76; PULSE 54; RESP 18; TEMP 97.6; O2SAT 99
--- NOTE | 2025-01-18 15:18 | MEDREC ---
[facility] ASP Intervention Section I [facility] ASP Intervention: Dose optimization(PK/PD) (The Final Blood culturre showed Escherichia coli. Please consider increasing dose of Ceftriaxone to 2 g IV daily for bacteremia ) CASSI LOMBARDI January 18, 2025 15:18
[2025-01-18 16:44] VITALS: BP 121/76; PULSE 55; RESP 19; TEMP 98.2; O2SAT 98
[2025-01-18 21:00] VITALS: BP 117/66; PULSE 53; RESP 20; TEMP 97.8; O2SAT 97
[2025-01-19 01:00] VITALS: BP 129/73; PULSE 48; RESP 20; TEMP 98; O2SAT 99
[2025-01-19 08:09] LABS: Basophils # (auto) 0 10 ^3/uL (0-0.2); Basophils % (auto) 0.3 % (0.0-2.0); Eosinophils # (auto) 0.2 10 ^3/uL (0-0.8); Eosinophils % (auto) 3.2 % (0.0-7.0); Hematocrit 38.7 % (41.0-53.0); Hemoglobin 13.1 g/dL (13.5-17.5); Lymphocytes # (auto) 1.4 10 ^3/uL (0.4-5.4); Lymphocytes % (auto) 27.5 % (10.0-50.0); Mean Corpuscular Hemoglobin 30.4 pg (28.0-32.0); Mean Corpuscular Hgb Conc. 33.7 g/dL (32.0-36.0); Mean Corpuscular Volume 90.2 fL (80.0-100.0); Monocytes # (auto) 0.6 10 ^3/uL (0-1.3); Monocytes % (auto) 10.7 % (0.0-12.0); Neutrophils % (auto) 58.3 % (37.0-80.0); Nucleated Red Blood Cells % 0.1 %; Platelet Count (auto) 367 10^3/uL (140-450); Red Blood Cells 4.29 10^6/uL (4.5-5.90); Red Cell Distribution Width 14.6 % (11.8-14.3); White Blood Cell 5.2 10^3/uL (4.4-10.8)
[2025-01-19 08:26] LABS: Alanine Aminotransferase 37 U/L (7-40); Alkaline Phosphatase 97 U/L (46-116); Anion Gap 6 (5-15); Aspartate Aminotransferase 17 U/L (13-40); Bilirubin, Total 0.4 mg/dL (0.2-1.0); Blood Urea Nitrogen 16 mg/dL (9-23); Calcium 9.5 mg/dL (8.7-10.4); Carbon Dioxide 28 mmol/L (20-31); Chloride 105 mmol/L (98-107); Potassium 4.3 mmol/L (3.5-5.1); Sodium 139 mmol/L (136-145); Total Protein 6.7 g/dL (5.7-8.2)
[2025-01-19 08:28] LABS: Glucose 132 mg/dL (74-106)
[2025-01-19 08:50] VITALS: BP 120/70; PULSE 50; RESP 21; TEMP 97.8; O2SAT 98
[2025-01-19] MEDS: cefTRIAXone 2GM/50ML D5W 50 ML IV SCH (09:21)
--- NOTE | 2025-01-19 10:40 | DVHPN2 ---
Reviewed: Care Plan, H&P, Labs, Medications, Previous Orders, Radiology Changes from previous H/P or p: No Changes Objective Vitals Vital Signs Date Time Temp Pulse Resp B/P (MAP) Pulse Ox O2 Delivery O2 Flow Rate FiO2 01/19/25 08:50 97.8 50 21 120/70 (87) 98 97.8 01/19/25 08:00 Room Air* 0 21 Intake/Output Intake and Output 01/19/25 07:00 Intake Total 1830 ml Balance 1830 ml Intake Oral 1780 ml IV Total 50 ml # Voids 8 # Bowel Movements 3 Medications Current Medications Medications Dose Ordered Sig/Matt Route Start Time Stop Time Status Last Admin Dose Admin Sodium Chloride 10 ml Q8HR IV 01/15/25 22:00 01/19/25 06:28 10 ML Docusate Sodium 100 mg BIDPRN PRN PO 01/15/25 16:45 01/16/25 10:49 100 MG Acetaminophen 650 mg Q6HP PRN PO 01/15/25 16:45 01/16/25 05:49 650 MG Acetaminophen/ Hydrocodone Bitart 1 tab Q4HP PRN PO 01/15/25 16:45 01/16/25 10:49 1 TAB Ondansetron HCl 4 mg Q4HP PRN IV 01/15/25 16:45 Colchicine 0.6 mg Q12HR PO 01/16/25 22:00 01/19/25 09:21 0.6 MG Indomethacin 50 mg TID PO 01/16/25 14:00 01/19/25 06:28 50 MG Ceftriaxone Sodium/Dextrose 50 ml @ 50 mls/hr DAILY IV 01/19/25 10:00 01/19/25 09:21 50 MLS/HR Laboratory Results Laboratory Tests 01/19/25 07:48 Chemistry Test 01/19/25 07:48 Albumin 4.0 g/dL (3.2-4.8) Calcium Level 9.5 mg/dL (8.7-10.4) Total Protein 6.7 g/dL (5.7-8.2) LFT Test 01/19/25 07:48 Alanine Aminotransferase (ALT) 37 U/L (7-40) Alkaline Phosphatase 97 U/L (46-116) Aspartate Amino Transferase (AST) 17 U/L (13-40) Total Bilirubin 0.4 mg/dL (0.2-1.0) Urinalysis Test 01/15/25 14:00 Urine Color Light-yellow (Yellow) Urine Clarity Turbid (Clear) H Urine pH 7.0 (5.0-9.0) Urine Specific [place] 1.014 (1.001-1.035) Urine Protein Trace (Negative) H Urine Ketones Negative (Negative) Urine Blood 2+ /uL (Negative) H Urine Nitrite Negative (Negative) Urine Bilirubin Negative (Negative) Urine Urobilinogen 3 mg/dL (Negative) H Urine Leukocyte Esterase 3+ /uL (Negative) Urine RBC 70 /hpf (0 - 3) Urine Microscopic WBC 143 /HPF (0-3) H Urine Squamous Epithelial Cells Few /hpf (<5) Urine Bacteria Few /hpf (None Seen) H Urine Mucus Few (None Seen) Urine Glucose Normal mg/dL (Normal) Microbiology Microbiology Date/Time Source Procedure Growth Status 01/15/25 22:34 Nose MRSA Screen - Final Complete 01/15/25 14:38 Blood Blood Culture - Final Escherichia coli Complete 01/15/25 14:00 Voided Urine Urine Culture - Final Escherichia coli Complete Labs and/or images reviewed: Labs reviewed by me, Image(s) reviewed by me Assessment/Plan Assessment/Plan Sepsis Secondary to urinary tract infection with elevated white count 17 K: Both Blood cultures and urine cultures growing E coli: Continue Rocephin Acute urinary tract infection Acute Lactic acidosis Acute dehydration IV fluids History of gout colchicine indomethacin Enlarged prostate: PSA 48.7 urology consult for appreciated, advised outpatient cystoscopy, patient might need prostate biopsy because of elevated PSA, patient was advised accordingly Repeat blood cultures results pending Plan discussed with: Patient My Orders Orders - MARIZA CAAL MD Procedure Category Date Status Time Blood Culture LIAM 01/18/25 In Process 11:19 Regular Diet DIET 01/18/25 Transmitted Dinner Ceftriaxone 2gm/50ml PHA 01/19/25 In Process D5w (Rocephin 2gm/5 10:00 Date of Service: January 19, 2025 Billing Provider: MARIZA CAAL MD Common Visit Codes: [id number] INP/OBS CARE(HIGH) MARIZA CAAL MD January 19, 2025 10:40
[2025-01-19 12:51] VITALS: BP 109/82; PULSE 66; RESP 21; TEMP 98.6; O2SAT 99
[2025-01-19 16:43] VITALS: BP 132/76; PULSE 58; RESP 21; TEMP 97.8; O2SAT 99
[2025-01-19 21:00] VITALS: BP 136/81; PULSE 63; RESP 15; TEMP 97.7; O2SAT 97
[2025-01-20 01:00] VITALS: BP 110/59; PULSE 55; RESP 15; TEMP 97.6; O2SAT 94
[2025-01-20 05:00] VITALS: BP 123/68; PULSE 58; RESP 15; TEMP 97.5; O2SAT 98
[2025-01-20 07:22] LABS: Basophils # (auto) 0 10 ^3/uL (0-0.2); Basophils % (auto) 0.4 % (0.0-2.0); Eosinophils # (auto) 0.2 10 ^3/uL (0-0.8); Eosinophils % (auto) 2.7 % (0.0-7.0); Hematocrit 36.1 % (41.0-53.0); Hemoglobin 12.3 g/dL (13.5-17.5); Lymphocytes % (auto) 28.7 % (10.0-50.0); Mean Corpuscular Hemoglobin 30.5 pg (28.0-32.0); Mean Corpuscular Hgb Conc. 34.1 g/dL (32.0-36.0); Mean Corpuscular Volume 89.6 fL (80.0-100.0); Monocytes # (auto) 0.6 10 ^3/uL (0-1.3); Monocytes % (auto) 9.1 % (0.0-12.0); Neutrophils # (auto) 4.1 10 ^3/uL (1.6-8.6); Neutrophils % (auto) 59.1 % (37.0-80.0); Nucleated Red Blood Cells % 0.1 %; Platelet Count (auto) 370 10^3/uL (140-450); Red Blood Cells 4.03 10^6/uL (4.5-5.90); Red Cell Distribution Width 14.7 % (11.8-14.3); White Blood Cell 6.9 10^3/uL (4.4-10.8)
[2025-01-20 07:43] LABS: Alanine Aminotransferase 34 U/L (7-40); Albumin 3.8 g/dL (3.2-4.8); Alkaline Phosphatase 97 U/L (46-116); Anion Gap 5 (5-15); Aspartate Aminotransferase 22 U/L (13-40); BUN/Creatinine Ratio 12.7 (10.0-20.0); Blood Urea Nitrogen 18 mg/dL (9-23); Calcium 9.2 mg/dL (8.7-10.4); Carbon Dioxide 25 mmol/L (20-31); Potassium 4.3 mmol/L (3.5-5.1); Sodium 139 mmol/L (136-145); Total Protein 6.2 g/dL (5.7-8.2)
[2025-01-20 07:44] LABS: Bilirubin, Total 0.2 mg/dL (0.2-1.0); Chloride 109 mmol/L (98-107); Glucose 112 mg/dL (74-106)
[2025-01-20 08:55] VITALS: BP 129/77; PULSE 69; RESP 18; TEMP 97.6; O2SAT 99
[2025-01-20] MEDS ORDERED: TRAM-626 PO (11:31)
[2025-01-20] MEDS ORDERED: CIPR-173 PO (11:31)
--- NOTE | 2025-01-20 11:37 | DVHDS2 ---
Discharge Summary Date of Admission Jan 15, 2025 at 16:34 Date of Discharge: January 20, 2025 Admitting Diagnosis Generalized weakness and chills Wounds: none Labs/Diagnostic Data: Laboratory Results Test 01/20/25 06:37 01/16/25 07:31 01/15/25 16:29 01/15/25 14:00 White Blood Count 6.9 10^3/uL (4.4-10.8) Red Blood Count 4.03 10^6/uL (4.5-5.90) Hemoglobin 12.3 g/dL (13.5-17.5) Hematocrit 36.1 % (41.0-53.0) Mean Corpuscular Volume 89.6 fL (80.0-100.0) Mean Corpuscular Hemoglobin 30.5 pg (28.0-32.0) Mean Corpuscular Hemoglobin Concent 34.1 g/dL (32.0-36.0) Red Cell Distribution Width 14.7 % (11.8-14.3) Platelet Count 370 10^3/uL (140-450) Mean Platelet Volume 7.4 fL (6.9-10.8) Neutrophils (%) (Auto) 59.1 % (37.0-80.0) Lymphocytes (%) (Auto) 28.7 % (10.0-50.0) Monocytes (%) (Auto) 9.1 % (0.0-12.0) Eosinophils (%) (Auto) 2.7 % (0.0-7.0) Basophils (%) (Auto) 0.4 % (0.0-2.0) Neutrophils # (Auto) 4.1 10 ^3/uL (1.6-8.6) Lymphocytes # (Auto) 2.0 10 ^3/uL (0.4-5.4) Monocytes # (Auto) 0.6 10 ^3/uL (0-1.3) Eosinophils # (Auto) 0.2 10 ^3/uL (0-0.8) Basophils # (Auto) 0 10 ^3/uL (0-0.2) Nucleated Red Blood Cells 0.1 % Sodium Level 139 mmol/L (136-145) Potassium Level 4.3 mmol/L (3.5-5.1) Chloride Level 109 mmol/L (98-107) Carbon Dioxide Level 25 mmol/L (20-31) Anion Gap 5 (5-15) Blood Urea Nitrogen 18 mg/dL (9-23) Creatinine 1.42 mg/dL (0.700-1.30) Glomerular Filtration Rate Calc 58 mL/min (>90) BUN/Creatinine Ratio 12.7 (10.0-20.0) Serum Glucose 112 mg/dL (74-106) Calcium Level 9.2 mg/dL (8.7-10.4) Total Bilirubin 0.2 mg/dL (0.2-1.0) Aspartate Amino Transferase (AST) 22 U/L (13-40) Alanine Aminotransferase (ALT) 34 U/L (7-40) Alkaline Phosphatase 97 U/L (46-116) Total Protein 6.2 g/dL (5.7-8.2) Albumin 3.8 g/dL (3.2-4.8) Free Prostate Specific Antigen 11.50 ng/mL (N/A) Percent Free Prostate Specific Ag 23.6 % (.) Prostate Specific Antigen Total 48.7 ng/mL (0.0-4.0) Lactic Acid Level 1.1 mmol/L (0.4-2.0) Urine Color Light-yellow (Yellow) Urine Clarity Turbid (Clear) Urine pH 7.0 (5.0-9.0) Urine Specific [place] 1.014 (1.001-1.035) Urine Protein Trace (Negative) Urine Ketones Negative (Negative) Urine Blood 2+ /uL (Negative) Urine Nitrite Negative (Negative) Urine Bilirubin Negative (Negative) Urine Urobilinogen 3 mg/dL (Negative) Urine Leukocyte Esterase 3+ /uL (Negative) Urine RBC 70 /hpf (0 - 3) Urine Microscopic WBC 143 /HPF (0-3) Urine Squamous Epithelial Cells Few /hpf (<5) Urine Bacteria Few /hpf (None Seen) Urine Mucus Few (None Seen) Urine Glucose Normal mg/dL (Normal) Other Laboratory Tests 01/20/25 06:37 Brief Hx & Hospital Course: 54-year-old previous history of gout on colchicine and indomethacin came in complaining of generalized weakness and chills. Found to have sepsis secondary to urinary tract infection treated [place] [id number] blood cultures and urine cultures both grew E coli sensitive to Rocephin which was continued dehydration resolved with IV fluids CT abdomen pelvis without contrast showed enlarged prostate PSA was elevated [address] Mckeon advised outpatient cystoscopy biopsy. Patient at the time of discharge afebrile stable vital signs repeat blood cultures came negative. Discharged home on Cipro and tramadol he was advised to follow up with the urologist for prostate biopsy Consults/Reason for consult Urology Dr. Mckeon Operations or Procedures CT abdomen pelvis without contrast Condition at Discharge: Fair Final Diagnosis/Problems List Sepsis Secondary to urinary tract infection with elevated white count 17 K: Both Blood cultures and urine cultures growing E coli: Continue Rocephin Acute urinary tract infection Acute Lactic acidosis Acute dehydration IV fluids History of gout colchicine indomethacin Enlarged prostate: PSA 48.7 urology consult for appreciated, advised outpatient cystoscopy, patient might need prostate biopsy because of elevated PSA, patient was advised accordingly Discharge Disposition: Home Discharge Instruct/Medications Diet: Regular Activity: Light activity Follow Up/Referral: Follow up with your primary Dr in one week Follow up with the Urology Dr. Mckeon for outpatient workup on enlarged prostate and elevated PSA Medications: Cipro Tramadol Transmitted to pharmacy 35 (Time Taken for discharge summary 35 minutes) Discharge Statement: "Patient was advised to return to the ER or call 911 if any headaches, dizziness, shortness of breath, chest pain, abdominal pain, bleeding, fevers, or worsening of medical condition. Patient was counseled about treatment plan, medications, possible side effects, patientverbalized understanding. All questions were answered to the best of my ability. This discharge took greater then 30 minutes in planning, reviewing documentation, counseling the patient, and discussing with other team members." ASSESSMENT ASSESSMENT Hospital Course Uneventful Assessment Sepsis Secondary to urinary tract infection with elevated white count 17 K: Both Blood cultures and urine cultures growing E coli: Continue Rocephin Acute urinary tract infection Acute Lactic acidosis Acute dehydration IV fluids History of gout colchicine indomethacin Enlarged prostate: PSA 48.7 urology consult for appreciated, advised outpatient cystoscopy, patient might need prostate biopsy because of elevated PSA, patient was advised accordingly Date of Service: January 20, 2025 Billing Provider: MARIZA CAAL MD Common Visit Codes: [id number] INP/OBS CARE(HIGH) MARIZA CAAL MD January 20, 2025 11:37
[2025-01-20 12:08] VITALS: BP 125/72; PULSE 77; RESP 16; TEMP 36.4; O2SAT 98
== END 2025-01-20 13:14 | disposition home or self-care (01) | DRG 872 ==
LOC: ER 13:34 → OVERFLOW 16:34 → WEST WING 23:40
PROVIDERS: ADMIT Family Medicine; ATTEND Family Medicine
DX: A41.51 Sepsis due to Escherichia coli [E. coli] (principal); N39.0 Urinary tract infection, site not specified; N17.9 Acute kidney failure, unspecified; E87.21 Acute metabolic acidosis; N41.9 Inflammatory disease of prostate, unspecified; E86.0 Dehydration; N40.0 Benign prostatic hyperplasia without lower urinary tract symptoms; R35.1 Nocturia; M10.9 Gout, unspecified; Z79.1 Long term (current) use of non-steroidal anti-inflammatories (NSAID); Z79.899 Other long term (current) drug therapy; Z79.891 Long term (current) use of opiate analgesic; Z80.0 Family history of malignant neoplasm of digestive organs
CPT/HCPCS: 36415; 71045; 74176; 76775; 80048; 80053; 81001; 83605; 84154; 85025; 87040; 87077; 87081; 87086; 87088; 87186; 93005; 96361; 96365; 99291; G0378; J2543

== ENCOUNTER → 2025-03-06 | Day surgery (SDC) | payer SELFPAY ==
[2025-03-01 15:13] LABS: Urine Bacteria None Seen /hpf (None Seen)
[2025-03-01 15:17] LABS: Basophils # (auto) 0 10 ^3/uL (0-0.2); Basophils % (auto) 0.5 % (0.0-2.0); Eosinophils # (auto) 0.3 10 ^3/uL (0-0.8); Eosinophils % (auto) 5.1 % (0.0-7.0); Hematocrit 38.4 % (41.0-53.0); Lymphocytes # (auto) 1.5 10 ^3/uL (0.4-5.4); Lymphocytes % (auto) 27.3 % (10.0-50.0); Mean Corpuscular Hemoglobin 30.5 pg (28.0-32.0); Mean Corpuscular Hgb Conc. 33.8 g/dL (32.0-36.0); Mean Corpuscular Volume 90.3 fL (80.0-100.0); Monocytes # (auto) 0.5 10 ^3/uL (0-1.3); Monocytes % (auto) 8.7 % (0.0-12.0); Neutrophils # (auto) 3.2 10 ^3/uL (1.6-8.6); Neutrophils % (auto) 58.4 % (37.0-80.0); Platelet Count (auto) 309 10^3/uL (140-450); Red Blood Cells 4.25 10^6/uL (4.5-5.90); Red Cell Distribution Width 14.6 % (11.8-14.3); White Blood Cell 5.5 10^3/uL (4.4-10.8)
[2025-03-01 15:23] LABS: Urine Blood Negative /uL (Negative); Urine Clarity Clear (Clear); Urine Color Colorless (Yellow); Urine Protein, UAD Negative (Negative); Urine Specific Gravity 1.013 (1.001-1.035); Urine Squamous Epithelial Cell FEW /hpf (<5); Urine Urobilinogen Normal (Negative); Urine WBC 1 /HPF (0-3); Urine pH 5.5 (5.0-9.0)
[2025-03-01 15:35] LABS: INR 0.89 (0.9-1.15); Partial Thromboplastin Time 23.7 SEC (24.5-34.5); Prothrombin Time 9.5 sec (9.3-11.8)
[2025-03-01 15:44] LABS: Alanine Aminotransferase 32 U/L (7-40); Albumin 3.8 g/dL (3.2-4.8); Alkaline Phosphatase 99 U/L (46-116); Anion Gap 9 (5-15); Aspartate Aminotransferase 26 U/L (0-34); BUN/Creatinine Ratio 11.5 (10.0-20.0); Blood Urea Nitrogen 16 mg/dL (9-23); Calcium 9.5 mg/dL (8.7-10.4); Carbon Dioxide 27 mmol/L (20-31); Chloride 108 mmol/L (98-107); Glucose 103 mg/dL (74-106); Potassium 4.1 mmol/L (3.5-5.1); Sodium 144 mmol/L (136-145)
[2025-03-01 15:45] LABS: Bilirubin, Total 0.4 mg/dL (0.2-1.0)
[~2025-03-06] VITALS: Ht 175.3 cm; Wt 99.8 kg
[~2025-03-06] MED LIST changes: +CIPROFLOXACIN 400MG/200ML 200 ML IV ONE; -COLC1CAP PO; -HYDR-4902 PO; +HYDROmorphone HCL 2 MG/ML VL/or syr IV PRN; +HYDROmorphone HCL 2 MG/ML VL/or syr ONE; -IBUP-1455 PO; +ONDANSETRON HCL 4 MG/2 ML VIAL IV ONE; +PROPOFOL 10 MG/ML 20 ML IV ONE; +TAMS-35 PO; +ePHEDrine SULFATE 50 MG/ML AMP ONE; +fentaNYL CITRATE 100 MCG/2 ML VL ONE
[2025-03-06 12:48] VITALS: PULSE 106; RESP 16; TEMP 97.3; O2SAT 98
--- NOTE | 2025-03-06 13:06 | DVHNC2 ---
Procedure - OPERATIVE REPORT Pre-op. Diagnosis: BPH with Obstruction Post-op. Diagnosis: urethral stricture disease BPH with obstruction Operation: Cystoscopy with Direct Visual Internal Urethrotomy Urolift - Prostate Implants placement Mcdaniel catheter insertion Anesthesia: General Indications: Patient suffers from obstructive voiding dysfunction. Treatment options were discussed including ongoing therapy with pharmaceutical such as alpha blocking agents (Flomax/UroXatral/Rapaflow), or Prostate shrinking agents (proscar/Avodart); In-office prostate therapies (TUMT/Indigo Laser/TUNA); or Outpatient procedures such as Green light laser photovaporization/Enucleation/TURP) as well urolift. Corresponding advantages and disadvantages were also discussed. Questions were addressed. Complication include but nt limited to infection, bleeding, damage to the surrounding structures, ejaculatory dysfunction, erectile dysfunction, need for secondary procedures were discussed. Informed consent was obtained. Details of Procedure: After patient is taken to OR and appropriate anesthesia administered, area of the genitalia is prepped and draped in normal sterile fashion in the lithotomy position. The 20 F access sheath was introduced into the bladder under direct vision. There was a proximal membranous urethral stricture noted. The stricture site was dilated with Alex sounds to 28 Serbian and cold knife was used to incise the stricture at 12:00 p.m. and 6 o'clock position.Bladder was emptied and the Urolift device was introduced. Five implants were permanently placed at the 10 a& 2 O'clock positions near the bladder neck and apical tissue to lift the kissing lateral lobes out of the way and to create a channel in the prostatic urethra and the urethral bladder neck opening. The implants were delivered through a needle that comes out of the Urolift delivery device and into the prostate. Patient tolerated the procedure well and was awakened before transporting to the safely. All instrument counts were correct at the end of the procedure. Specimens: None Complications: None None Findings: Mcdaniel to gravity x Notes: Mcdaniel catheter was placed mainly for the management of the urethral stricture process LEEANN HUYNH MD Mar 06, 2025 13:06
--- NOTE | 2025-03-06 13:07 | DVHDS2 ---
New Physician D'charge PN Admitting Diagnosis Admitting Diagnosis BPH Discharge Diagnosis BPH Urethral stricture disease Operations or Procedures Cystoscopy with direct visual internal urethrotomy UroLift implantation Reason(s) For Hospitalization Surgery Treatment Plan Discharge Condition of Discharge Fair Disposition Home Discharge Instructions Diet: Regular Activity: Light activity Activity comment: Mcdaniel catheter management Medications: Given Follow Up Care Follow Up/Referral: Voiding trial on postop day 1. Discharge Statement: "Patient was advised to return to the ER or call 911 if any headaches, dizziness, shortness of breath, chest pain, abdominal pain, bleeding, fevers, or worsening of medical condition. Patient was counseled about treatment plan, medications, possible side effects, patientverbalized understanding. All questions were answered to the best of my ability. This discharge took greater then 30 minutes in planning, reviewing documentation, counseling the patient, and discussing with other team members." LEEANN HUYNH MD Mar 06, 2025 13:07
[2025-03-06] MEDS: ACETAMINOPHEN IV 1000 MG/100ML (10MG/ML) IV PRN (13:10)
[2025-03-06 15:20] VITALS: BP 108/65; PULSE 80; RESP 20; O2SAT 97
== END | disposition home or self-care (01) ==
LOC: SUR 09:44
PROVIDERS: ATTEND Urology
DX: N40.1 Benign prostatic hyperplasia with lower urinary tract symptoms (principal); N13.8 Other obstructive and reflux uropathy; N35.919 Unspecified urethral stricture, male, unspecified site; M10.9 Gout, unspecified; Z79.899 Other long term (current) drug therapy; Z98.890 Other specified postprocedural states
CPT/HCPCS: 36415; 52441; 52442; 80053; 81001; 85025; 85610; 85730; 87086; A4315; A4344; J0744; J1171; J2704; J3010; J7030; L8699; J0131